=== PATIENT | male | born 1945 | race Native Hawaiian/Other Pacific Islander ===

== ENCOUNTER 2017-02-19 08:00 | Outpatient (CLI) | payer OTHER ==
[~2017-02-19 08:00] MED LIST: ASA LO-DOSE81 MG PO; CLOP75TA2 PO; ETHA400T PO; NORCO 10/325***1 TAB PO; OMEPRAZOLE20 M1 PO; RANO500T PO; SOTA80TA2 PO; ZITHROMAX500 MG PO
[2017-02-19 08:18] LABS: PLATELET COUNT 199 K/uL (142-355)
[2017-02-19 08:31] LABS: POTASSIUM 4.3 mmol/L (3.6-5.2)
== END 2017-02-19 09:00 | disposition home or self-care (01) ==
LOC: LABW 08:00
PROVIDERS: Nurse Practitioner
DX: I10 Essential (primary) hypertension (principal); E78.4 Other hyperlipidemia; K21.0 Gastro-esophageal reflux disease with esophagitis; Z95.5 Presence of coronary angioplasty implant and graft
CPT/HCPCS: 36415; 80053; 80061; 82043; 82570; 85027

== ENCOUNTER 2017-05-20 11:44 | Emergency (ER) | payer OTHER ==
[~2017-05-20] VITALS: Ht 172.7 cm; Wt 70.3 kg
[2017-05-20 11:44] VITALS: TEMP 98.6
[2017-05-20] MEDS ORDERED: CRESTOR5 MG PO (11:56)
[2017-05-20] MEDS ORDERED: TRAMADOL HCL E100 M1 PO (11:57)
[2017-05-20] MEDS ORDERED: DEXL60CA4 PO (11:57)
[2017-05-20] MEDS ORDERED: GRALISE600 MG OR (11:58)
[2017-05-20 12:44] LABS: PLATELET COUNT 278 K/uL (142-355)
[2017-05-20 12:48] LABS: SODIUM 134 mmol/L (136-145)
[2017-05-20 13:04] LABS: PARTIAL THROMBOPLASTIN TIME 19.7 SECONDS (24.5-33.6)
[2017-05-20 14:37] VITALS: BP 101/61
== END 2017-05-20 14:40 | disposition home or self-care (01) ==
LOC: ED 11:44
PROVIDERS: Emergency Medicine
DX: J44.9 Chronic obstructive pulmonary disease, unspecified (principal); R09.89 Other specified symptoms and signs involving the circulatory and respiratory systems
CPT/HCPCS: 36415; 80053; 80307; 81000; 82550; 83880; 84484; 85027; 85379; 85610; 85730; 93005; 96374; 99284; G0479; J1940

== ENCOUNTER 2017-11-18 09:09 | Outpatient (CLI) | payer OTHER ==
[~2017-11-18 09:09] MED LIST changes: +CRESTOR5 MG PO; +DEXL60CA4 PO; +GRALISE600 MG OR; +TRAMADOL HCL E100 M1 PO
[2017-11-18 09:31] LABS: PLATELET COUNT 169 K/uL (142-355)
[2017-11-18 10:00] LABS: POTASSIUM 4.4 mmol/L (3.6-5.2)
== END 2017-11-18 20:25 | disposition home or self-care (01) ==
LOC: LABW 09:09
PROVIDERS: Nurse Practitioner
DX: I10 Essential (primary) hypertension (principal); E78.4 Other hyperlipidemia; I25.10 Atherosclerotic heart disease of native coronary artery without angina pectoris; E55.9 Vitamin D deficiency, unspecified; R39.15 Urgency of urination; Z12.5 Encounter for screening for malignant neoplasm of prostate
CPT/HCPCS: 36415; 80053; 80061; 82043; 82306; 82570; 83735; 84153; 85027

== ENCOUNTER 2017-12-01 07:59 | Emergency (ER) | payer OTHER ==
[~2017-12-01] VITALS: Ht 172.7 cm; Wt 70.8 kg
[2017-12-01 08:04] VITALS: TEMP 98.1
[2017-12-01 08:43] LABS: PLATELET COUNT 212 K/uL (142-355)
[2017-12-01 08:49] LABS: POTASSIUM 4.1 mmol/L (3.6-5.2)
[2017-12-01 09:40] VITALS: BP 148/78
== END 2017-12-01 09:40 | disposition home or self-care (01) ==
LOC: ED 07:59
PROVIDERS: Emergency Medicine
DX: J44.1 Chronic obstructive pulmonary disease with (acute) exacerbation (principal); J32.8 Other chronic sinusitis; R09.82 Postnasal drip
CPT/HCPCS: 80053; 81000; 83880; 85027; 94664; 99283

== ENCOUNTER 2018-02-17 07:56 | Outpatient (CLI) | payer OTHER ==
[2018-02-17 08:13] LABS: PLATELET COUNT 214 K/uL (142-355)
[2018-02-17 08:28] LABS: POTASSIUM 4.2 mmol/L (3.6-5.2)
== END 2018-02-17 23:20 | disposition home or self-care (01) ==
LOC: LABW 07:56
PROVIDERS: Nurse Practitioner
DX: I10 Essential (primary) hypertension (principal); E78.4 Other hyperlipidemia; M79.641 Pain in right hand
CPT/HCPCS: 36415; 80053; 80061; 85027; 85651; 86039; 86430

== ENCOUNTER 2018-06-16 08:48 | Outpatient (CLI) | payer OTHER | END 2018-06-16 20:30 | disposition home or self-care (01) | LOC: LABW 08:48 | DX: I25.110 Atherosclerotic heart disease of native coronary artery with unstable angina pectoris (principal); E78.2 Mixed hyperlipidemia; Z86.79 Personal history of other diseases of the circulatory system | CPT/HCPCS: 36415; 80061 ==

== ENCOUNTER 2018-06-29 13:18 | Emergency (ER) | payer OTHER ==
[~2018-06-29] VITALS: Ht 172.7 cm; Wt 73.5 kg
[2018-06-29 13:47] LABS: PLATELET COUNT 233 K/uL (142-355)
[2018-06-29 14:01] LABS: POTASSIUM 4.3 mmol/L (3.6-5.2); SODIUM 137 mmol/L (136-145)
[2018-06-29 16:30] VITALS: BP 111/59; TEMP 98
== END 2018-06-29 16:30 | disposition short-term general hospital (02) ==
LOC: ED 13:18
PROVIDERS: Family Medicine
DX: R07.89 Other chest pain (principal)
CPT/HCPCS: 36415; 80053; 81000; 82550; 84484; 85027; 93005; 96374; 96375; 99284; J2270